=== PATIENT | female | born 1950 | race Caucasian/White ===

== ENCOUNTER 2022-08-31 10:13 | Emergency (ER) | payer MEDICARE, OTHER ==
[2022-08-31 11:42] LABS: CORONAVIRUS COVID-19 NAA NEGATIVE (NEGATIVE)
[2022-08-31 12:14] LABS: ESTIMATED GFR 60 mL/min (>60); TROPONIN I HIGH SENSITIVITY 7.5 pg/mL (<=60.3)
== END 2022-08-31 13:15 | disposition home or self-care (01) ==
LOC: JP.ED 10:13
DX: R55 Syncope and collapse (principal); J01.90 Acute sinusitis, unspecified; I10 Essential (primary) hypertension; E11.9 Type 2 diabetes mellitus without complications; Z90.49 Acquired absence of other specified parts of digestive tract; Z79.899 Other long term (current) drug therapy; Z86.16 Personal history of COVID-19; Z20.822 Contact with and (suspected) exposure to COVID-19
CPT/HCPCS: 0241U; 36415; 80053; 84484; 85025; 99284

== ENCOUNTER 2022-10-13 12:51 | Emergency (ER) | payer MEDICARE, OTHER ==
[2022-10-13 16:30] LABS: HEMOGLOBIN A1C 7.8 % (4.5-6.2)
[2022-10-13 16:38] LABS: ESTIMATED GFR 68 mL/min (>60)
[2022-10-13] MEDS ORDERED: Sodium Chloride 0.9% 10 ML Syringe FLUSH PRN (16:48)
[2022-10-13] MEDS ORDERED: Potassium Chloride 10 MEQ in Premix Bag 1 BAG IV ONE (16:48)
[2022-10-13] MEDS ORDERED: Potassium Chloride 20 MEQ Tab.ER PO ONE (16:49)
[2022-10-13] MEDS ORDERED: Sodium Chloride 0.9% 1,000 ML IV SCH (17:00)
[2022-10-13 19:03] LABS: CORONAVIRUS COVID-19 NAA NEGATIVE (NEGATIVE)
== END 2022-10-13 19:17 | disposition home or self-care (01) ==
LOC: JP.ED 12:51
DX: E87.6 Hypokalemia (principal); I10 Essential (primary) hypertension; E11.9 Type 2 diabetes mellitus without complications; Z79.84 Long term (current) use of oral hypoglycemic drugs; Z79.899 Other long term (current) drug therapy; Z20.822 Contact with and (suspected) exposure to COVID-19
CPT/HCPCS: 0241U; 36415; 80053; 83036; 85025; 93005; 96361; 96365; 99285; A9270; J3480; J7030

== ENCOUNTER 2022-11-08 21:45 | Emergency (ER) | payer MEDICARE, OTHER ==
[2022-11-08] MEDS ORDERED: Sodium Chloride 0.9% 10 ML Syringe FLUSH PRN (21:57)
[2022-11-08] MEDS ORDERED: LORazepam 2 MG/ML SDV IVPUSH ONE (21:57)
[2022-11-08 22:40] LABS: ESTIMATED GFR 48 mL/min (>60); TROPONIN I HIGH SENSITIVITY 6.3 pg/mL (<=60.3)
[2022-11-08] MEDS ORDERED: Iopamidol 755 Mg/ML 100 ML Bottle IV SCH (22:45)
[2022-11-08] MEDS ORDERED: Sodium Chloride 0.9% 75 ML IV SCH (22:45)
== END 2022-11-09 00:21 | disposition home or self-care (01) ==
LOC: JP.ED 21:45
DX: R55 Syncope and collapse (principal); F41.0 Panic disorder [episodic paroxysmal anxiety]; E87.6 Hypokalemia; F45.8 Other somatoform disorders; E07.81 Sick-euthyroid syndrome; I10 Essential (primary) hypertension; E11.9 Type 2 diabetes mellitus without complications; Z88.8 Allergy status to other drugs, medicaments and biological substances; Z86.16 Personal history of COVID-19
CPT/HCPCS: 36415; 70450; 70496; 70498; 80053; 84439; 84443; 84484; 85025; 85610; 85730; 86140; 93005; 96374; 99285; J2060; J3490; Q9967; 93010; 99284

== ENCOUNTER 2023-04-11 07:02 | Day surgery (SDC) | payer MEDICARE, OTHER ==
[~2023-04-11 07:02] MED LIST: Bupivacaine 0.5% 30 ML SDV ONE
[2023-04-11] MEDS ORDERED: fentaNYL 100 MCG/2 ML SDV ONE (07:25)
[2023-04-11] MEDS ORDERED: Propofol 200 MG/20 ML SDV ONE (07:25)
[2023-04-11] MEDS ORDERED: Midazolam 1 MG/ML 2 ML SDV ONE (07:25)
[2023-04-11 07:26] LABS: HEMATOCRIT 37.6 % (34.3-46.0); HEMOGLOBIN 12.4 g/dL (11.2-15.5); MEAN CORPUSCULAR VOLUME 90.8 fL (81.4-99.0); RED BLOOD CELL COUNT 4.14 M/uL (3.77-5.24); WHITE BLOOD CELL COUNT,WBC 7.2 K/uL (3.2-11.0)
[2023-04-11] MEDS ORDERED: Lidocaine 0.5% 50 ML SDV ONE (07:29)
[2023-04-11] MEDS ORDERED: Lactated Ringers 1,000 ML IV SCH (07:30)
[2023-04-11] MEDS ORDERED: ceFAZolin 1 GM in Premix Bag 1 BAG IV ONE (07:30)
[2023-04-11] MEDS ORDERED: Nozin Nasal Sanitizer NASBOTH ONE (07:30)
[2023-04-11 07:47] LABS: A/G RATIO 0.7 (1.2-2.2); ALANINE AMINOTRANSFERASE,ALT 21 U/L (12-78); ALKALINE PHOSPHATASE 72 U/L (46-116); ANION GAP 11.7 mmol/L (5.0-14.0); ASPARTATE AMNIOTRANSFERASE,AST 17 U/L (15-37); BILIRUBIN TOTAL 1.3 mg/dL (0.2-1.0); BLOOD UREA NITROGEN,BUN 17 mg/dL (7-18); CARBON DIOXIDE,CO2 29 mmol/L (21-32); CHLORIDE,CL 102 mmol/L (100-108); EST CRCL DRUG DOSING (CG) 38.37 mL/min; ESTIMATED GFR 60 mL/min (>60); GLUCOSE RANDOM 209 mg/dL (74-106); POTASSIUM,K 3.7 mmol/L (3.6-5.2); PROTEIN TOTAL,TP 7.2 g/dL (6.4-8.2); SODIUM,NA 139 mmol/L (140-148)
[2023-04-11] MEDS ORDERED: Acetaminophen/HYDROcodone 325-5 MG Tab PO ONE (10:00)
== END 2023-04-11 10:55 | disposition home or self-care (01) ==
LOC: JP.SDS 07:02
PROVIDERS: ATTEND Specialist
DX: G56.01 Carpal tunnel syndrome, right upper limb (principal); M65.831 Other synovitis and tenosynovitis, right forearm; R06.02 Shortness of breath; I27.20 Pulmonary hypertension, unspecified; G47.19 Other hypersomnia; E03.9 Hypothyroidism, unspecified; E11.22 Type 2 diabetes mellitus with diabetic chronic kidney disease; I12.9 Hypertensive chronic kidney disease with stage 1 through stage 4 chronic kidney disease, or unspecified chronic kidney disease; N18.31 Chronic kidney disease, stage 3a; G47.33 Obstructive sleep apnea (adult) (pediatric); I44.0 Atrioventricular block, first degree; E66.01 Morbid (severe) obesity due to excess calories; Z95.0 Presence of cardiac pacemaker; Z79.84 Long term (current) use of oral hypoglycemic drugs; Z79.890 Hormone replacement therapy; Z79.899 Other long term (current) drug therapy; Z88.8 Allergy status to other drugs, medicaments and biological substances; Z68.42 Body mass index [BMI] 45.0-49.9, adult
CPT/HCPCS: 36415; 64721; 80053; 85027; 93005; 93010; A9270; J0690; J2250; J2704; J3010; J3490; J7120

== ENCOUNTER → 2023-11-05 | Day surgery (SDC) | payer MEDICARE, OTHER ==
[~2023-11-05] MED LIST changes: +Acetaminophen/HYDROcodone 325-5 MG Tab PO PRN; -Bupivacaine 0.5% 30 ML SDV ONE; +Lactated Ringers 1,000 ML IV SCH; +Nozin Nasal Sanitizer NASBOTH ONE; +Propofol 200 MG/20 ML SDV ONE; +ceFAZolin 1 GM in Premix Bag 1 BAG IV ONE; +fentaNYL 100 MCG/2 ML SDV ONE
[2023-11-05] MEDS: Bupivacaine 0.5% 30 ML SDV ONE ×2 (07:02→08:30)
[2023-11-05 07:26] LABS: HEMOGLOBIN 12.5 g/dL (11.2-15.5); MEAN CORPUSCULAR HEMOGLOBIN 29.6 pg (31.6-35.5); MEAN CORPUSCULAR HGB CONC 32.9 g/dL (31.6-35.5); MEAN CORPUSCULAR VOLUME 89.8 fL (81.4-99.0); RED BLOOD CELL COUNT 4.23 M/uL (3.77-5.24)
[2023-11-05 07:46] LABS: A/G RATIO 0.9 (1.2-2.2); ALANINE AMINOTRANSFERASE,ALT 35 U/L (12-78); ALBUMIN 3.3 g/dL (3.4-5.0); ALKALINE PHOSPHATASE 62 U/L (46-116); ASPARTATE AMNIOTRANSFERASE,AST 19 U/L (15-37); BILIRUBIN TOTAL 1.7 mg/dL (0.2-1.0); BLOOD UREA NITROGEN,BUN 15 mg/dL (7-18); CALCIUM 8.7 mg/dL (8.5-10.1); CARBON DIOXIDE,CO2 29 mmol/L (21-32); CHLORIDE,CL 104 mmol/L (100-108); EST CRCL DRUG DOSING (CG) 37.81 mL/min; ESTIMATED GFR 59 mL/min (>60); GLUCOSE RANDOM 160 mg/dL (74-106); POTASSIUM,K 3.7 mmol/L (3.6-5.2); PROTEIN TOTAL,TP 7.1 g/dL (6.4-8.2); SODIUM,NA 138 mmol/L (140-148)
[2023-11-05 07:48] LABS: ANION GAP 8.7 mmol/L (5.0-14.0)
== END ==
LOC: JP.SDS 07:06
PROVIDERS: ATTEND Specialist
DX: M65.311 Trigger thumb, right thumb (principal); M65.331 Trigger finger, right middle finger; M65.9 Synovitis and tenosynovitis, unspecified; I10 Essential (primary) hypertension; E11.9 Type 2 diabetes mellitus without complications; E66.01 Morbid (severe) obesity due to excess calories; Z68.41 Body mass index [BMI] 40.0-44.9, adult
CPT/HCPCS: 26055; 36415; 80053; 85027; A9270; J0665; J0690; J2704; J3010; J7120

== ENCOUNTER 2023-12-10 06:22 | Day surgery (SDC) | payer MEDICARE, OTHER ==
[2023-12-10 06:49] LABS: HEMATOCRIT 42.3 % (34.3-46.0); HEMOGLOBIN 13.8 g/dL (11.2-15.5); MEAN CORPUSCULAR HEMOGLOBIN 29.5 pg (31.6-35.5); MEAN CORPUSCULAR HGB CONC 32.6 g/dL (31.6-35.5); MEAN CORPUSCULAR VOLUME 90.4 fL (81.4-99.0); RED BLOOD CELL COUNT 4.68 M/uL (3.77-5.24); WHITE BLOOD CELL COUNT,WBC 5.9 K/uL (3.2-11.0)
[2023-12-10 07:04] LABS: CALCIUM 8.6 mg/dL (8.5-10.1); CREATININE 1.2 mg/dL (0.6-1.0); EST CRCL DRUG DOSING (CG) 33.02 mL/min; POTASSIUM,K 3.8 mmol/L (3.6-5.2)
[2023-12-10 07:05] LABS: ANION GAP 10.8 mmol/L (5.0-14.0)
[2023-12-10] MEDS ORDERED: fentaNYL 100 MCG/2 ML SDV ONE (07:24)
[2023-12-10] MEDS ORDERED: Propofol 200 MG/20 ML SDV ONE (07:24)
[2023-12-10] MEDS ORDERED: Midazolam 1 MG/ML 2 ML SDV ONE (07:25)
[2023-12-10] MEDS ORDERED: Lidocaine 0.5% 50 ML SDV ONE (07:29)
[2023-12-10] MEDS: Nozin Nasal Sanitizer NASBOTH ONE (07:33)
[2023-12-10] MEDS: Lactated Ringers 1,000 ML IV SCH (07:37)
[2023-12-10] MEDS: ceFAZolin 1 GM in Premix Bag 1 BAG IV ONE (07:45)
[2023-12-10] MEDS: Bupivacaine 0.5% 30 ML SDV ONE (08:23)
== END 2023-12-10 09:40 | disposition home or self-care (01) ==
LOC: JP.SDS 06:22
PROVIDERS: ATTEND Specialist
DX: M65.311 Trigger thumb, right thumb (principal); I10 Essential (primary) hypertension; E11.9 Type 2 diabetes mellitus without complications; E03.9 Hypothyroidism, unspecified; Z88.2 Allergy status to sulfonamides
CPT/HCPCS: 26055; 36415; 80048; 85027; A9270; J0665; J0690; J2250; J2704; J3010; J7120

== ENCOUNTER 2024-05-28 06:20 | Emergency (ER) | payer MEDICARE, OTHER ==
[2024-05-28] MEDS: Ketorolac 30 MG/ML SDV IM ONE (07:48)
== END 2024-05-28 08:47 | disposition home or self-care (01) ==
LOC: JP.ED 06:20
DX: G56.92 Unspecified mononeuropathy of left upper limb (principal); I10 Essential (primary) hypertension; I48.91 Unspecified atrial fibrillation; E03.9 Hypothyroidism, unspecified; E11.9 Type 2 diabetes mellitus without complications; Z90.49 Acquired absence of other specified parts of digestive tract; Z86.16 Personal history of COVID-19; Z79.890 Hormone replacement therapy; Z79.84 Long term (current) use of oral hypoglycemic drugs; Z79.899 Other long term (current) drug therapy; Z88.8 Allergy status to other drugs, medicaments and biological substances
CPT/HCPCS: 96372; 99283; J1885; 99284

== ENCOUNTER 2024-07-14 08:18 | Day surgery (SDC) | payer MEDICARE, OTHER ==
[~2024-07-14 08:18] MED LIST changes: -Acetaminophen/HYDROcodone 325-5 MG Tab PO PRN; -Lactated Ringers 1,000 ML IV SCH; +Lidocaine 0.5% 50 ML SDV ONE; +Midazolam 1 MG/ML 2 ML SDV ONE; -Nozin Nasal Sanitizer NASBOTH ONE; -ceFAZolin 1 GM in Premix Bag 1 BAG IV ONE
[2024-07-14 08:59] LABS: HEMATOCRIT 36.1 % (34.3-46.0); HEMOGLOBIN 12.5 g/dL (11.2-15.5); MEAN CORPUSCULAR HEMOGLOBIN 31.3 pg (31.6-35.5); MEAN CORPUSCULAR HGB CONC 34.6 g/dL (31.6-35.5); MEAN CORPUSCULAR VOLUME 90.5 fL (81.4-99.0); RED BLOOD CELL COUNT 3.99 M/uL (3.77-5.24); WHITE BLOOD CELL COUNT,WBC 6.1 K/uL (3.2-11.0)
[2024-07-14] MEDS: Nozin Nasal Sanitizer NASBOTH ONE (09:05)
[2024-07-14] MEDS: Lactated Ringers 1,000 ML IV SCH (09:09)
[2024-07-14 09:10] LABS: ANION GAP 10.6 mmol/L (5.0-14.0); CALCIUM 9.6 mg/dL (8.5-10.1); CREATININE 1.1 mg/dL (0.6-1.0); EST CRCL DRUG DOSING (CG) 36.02 mL/min; POTASSIUM,K 3.6 mmol/L (3.6-5.2)
[2024-07-14] MEDS: ceFAZolin 1 GM in Premix Bag 1 BAG IV ONE (11:15)
[2024-07-14] MEDS: Bupivacaine 0.5% 30 ML SDV ONE (11:40)
[2024-07-14] MEDS ORDERED: Acetaminophen/HYDROcodone 325-5 MG Tab PO ONE (12:50)
== END 2024-07-14 13:20 | disposition home or self-care (01) ==
LOC: JP.SDS 08:18
PROVIDERS: ATTEND Specialist
DX: G56.02 Carpal tunnel syndrome, left upper limb (principal); I10 Essential (primary) hypertension; E11.9 Type 2 diabetes mellitus without complications; E66.9 Obesity, unspecified
CPT/HCPCS: 01810; 36415; 64721; 80048; 85027; A9270; J0665; J0689; J2250; J2704; J3010; J7120

== ENCOUNTER 2025-02-02 07:33 | Day surgery (SDC) | payer MEDICARE, OTHER ==
[2025-02-02 08:00] LABS: HEMATOCRIT 39.8 % (34.3-46.0); HEMOGLOBIN 13.1 g/dL (11.2-15.5); MEAN CORPUSCULAR HEMOGLOBIN 31.4 pg (31.6-35.5); MEAN CORPUSCULAR HGB CONC 32.9 g/dL (31.6-35.5); MEAN CORPUSCULAR VOLUME 95.4 fL (81.4-99.0); RED BLOOD CELL COUNT 4.17 M/uL (3.77-5.24); WHITE BLOOD CELL COUNT,WBC 5.7 K/uL (3.2-11.0)
[2025-02-02 08:11] LABS: ANION GAP 12.4 mmol/L (5.0-14.0); CALCIUM 9.7 mg/dL (8.5-10.1); CREATININE 1.1 mg/dL (0.6-1.0); EST CRCL DRUG DOSING (CG) 35.08 mL/min
[2025-02-02] MEDS: Nozin Nasal Sanitizer NASBOTH ONE (08:12)
[2025-02-02] MEDS: Lactated Ringers 1,000 ML IV SCH (08:24)
[2025-02-02] MEDS: ceFAZolin 1 GM in Premix Bag 1 BAG IV ONE (08:50)
[2025-02-02] MEDS: Bupivacaine 0.5% 30 ML SDV INJECT ONE (09:00)
== END 2025-02-02 11:10 | disposition home or self-care (01) ==
LOC: JP.SDS 07:33
PROVIDERS: ATTEND Specialist
DX: M65.312 Trigger thumb, left thumb (principal); M65.842 Other synovitis and tenosynovitis, left hand; J45.909 Unspecified asthma, uncomplicated; I10 Essential (primary) hypertension; E11.9 Type 2 diabetes mellitus without complications; Z88.8 Allergy status to other drugs, medicaments and biological substances
CPT/HCPCS: 26055; 36415; 80048; 85027; A9270; J0665; J0689; J2250; J2704; J3010; J7120; 01810-QZ